=== PATIENT | female | born 1945 | race Caucasian/White ===

== ENCOUNTER → 2017-12-25 | Outpatient (CLI) | payer OTHER | LOC: M.RAD 15:34 | DX: S62.102D Fracture of unspecified carpal bone, left wrist, subsequent encounter for fracture with routine healing (principal); Z78.0 Asymptomatic menopausal state; X58.XXXD Exposure to other specified factors, subsequent encounter ==

== ENCOUNTER → 2019-04-21 | Outpatient (CLI) | payer OTHER | LOC: M.RAD 09:46 | DX: Z12.31 Encounter for screening mammogram for malignant neoplasm of breast (principal) ==